=== PATIENT | male | born 1950 | race Caucasian/White ===

== ENCOUNTER → 2016-05-08 | Outpatient (REF) | payer OTHER ==
[~2016-05-08] MED LIST: ACTO30TA7 PO; ASPI1TAB PO; CINN500C9 PO; FURO20TA2 PO; HUMA75IN2 SC; HUMA75VL SC; LIPI10TA PO; LOSA100T37 PO; MULT1TAB11 PO; ZYLO300T4 PO
[2016-05-08 14:00] LABS: INR 1.15
== END ==
LOC: M LAB REF 13:23
PROVIDERS: ATTEND Internal Medicine Medical Oncology
DX: C18.1 Malignant neoplasm of appendix (principal); C78.6 Secondary malignant neoplasm of retroperitoneum and peritoneum

== ENCOUNTER → 2016-05-15 | Outpatient (CLI) | payer MEDICARE, OTHER ==
[~2016-05-15] MED LIST changes: +LIDOCAINE 2% MDV 20 ML VIAL As Ordered ONE; +LIDOCAINE W/EPINEPHRINE 1% 20ML VIAL As Ordered ONE; +MIDAZOLAM INJ 2 MG/2 ML VIAL (J2250) As Ordered ONE; +SODIUM BICARBONATE 8.4% INJ 50MEQ 50 ML VIAL As Ordered ONE; +ceFAZolin 1GM INJ (J0690) As Ordered ONE; +fentaNYL 100 MCG/2 ML INJECTION (J3010) As Ordered ONE
--- NOTE | 2016-05-15 17:08 | REPKIM ---
CLINICAL HISTORY: Appendiceal adeno ca, colonic mass with peritoneal carcinomatosis. The referring service has asked a chest [id number] placement for chemotherapy. PROCEDURE PERFORMED: Placement of totally implantable venous access device under combined sonographic and fluoroscopic guidance INTERVENTIONALIST: Philip Palencia MD CONSENT: The risks, benefits and alternatives to the procedure were explained to the patient and informed written consent was obtained. MEDICATIONS: Local Lidocaine, Ancef 1 gm IV, Versed IV and Fentanyl IV. SEDATION: Conscious sedation using Versed 1.5 mg IV and Fentanyl 75 mcg IV; starting time at 1023 and end at 1105. Independent trained observer was present during the entire duration of the conscious sedation for monitoring. EBL: less than 10 mL FLUORO TIME: 0.2 minutes DEVICE USED: Bard Port 8-Spanish, Single-Lumen Lot#[id number] PROCEDURE/FINDINGS: The patient was brought to the interventional radiology suite and was positioned supine on the table. Time out procedure was performed. Real time ultrasound was used and permanent image stored. The right IJ vein is patent and compressible. Using ultrasound guidance the internal jugular vein was accessed with a micropuncture needle, after infiltration of the skin and deep tissues with local anesthetic. A peel-away sheath was placed. The catheter tip was inserted via the sheath under controlled respiration. The sheath was removed, and the catheter was flushed with heparinized saline and clamped. Next attention was turned to creation of a subcutaneous pocket for the port along the upper chest. The overlying skin and deep tissues were infiltrated with local anesthetic. A transverse skin incision was made long enough to accommodate the reservoir, and using blunt dissection a subcutaneous pocket was created. A tunnel was created from the pocket to the access site. A clamp was advanced from the pocket incision to the venous access site and used to grasp the free end of the catheter and pull it through to the pocket incision. The catheter was trimmed, attached to the reservoir, and flushed with heparinized saline. The reservoir was inserted into the pocket and secured with 2-0 absorbable sutures. The deep tissue was closed with interrupted 2-0 Vicryl suture. The skin incision was closed with a running subcuticular suture of 4-0 Vicryl. The venotomy incision was closed with 4-0 Vicryl suture. Mastisol and Steri-Strips were applied. The port was then accessed and Heparin (100 units/mL concentration) locked in the port. A sterile dressing was then applied. Post procedure chest spot film radiograph showed the tip of the catheter is at the cavoatrial junction. The patient tolerated the procedure well with no immediate complications. This procedure was performed using ultrasound and fluoroscopy. Dr. Palencia was present. IMPRESSION: 1. The right IJ vein is patent and compressible. 2. Successful placement of right IJ chest port placement as discussed above. The chest [id number] is ready for use. cc: Netta Maher MD [facility]
== END | disposition home or self-care (01) ==
LOC: M IRPRO 09:17
PROVIDERS: ATTEND Internal Medicine Medical Oncology
DX: C18.1 Malignant neoplasm of appendix (principal); C78.6 Secondary malignant neoplasm of retroperitoneum and peritoneum
CPT/HCPCS: 36561; 76937; 77001; C1788; C1894; J0690; J2250; J3010

== ENCOUNTER 2016-05-20 13:21 | Outpatient (CLI) | payer OTHER ==
[~2016-05-20 13:21] MED LIST changes: -LIDOCAINE 2% MDV 20 ML VIAL As Ordered ONE; -LIDOCAINE W/EPINEPHRINE 1% 20ML VIAL As Ordered ONE; -MIDAZOLAM INJ 2 MG/2 ML VIAL (J2250) As Ordered ONE; -SODIUM BICARBONATE 8.4% INJ 50MEQ 50 ML VIAL As Ordered ONE; -ceFAZolin 1GM INJ (J0690) As Ordered ONE; -fentaNYL 100 MCG/2 ML INJECTION (J3010) As Ordered ONE
[2016-05-20] MEDS ORDERED: diphenhydrAMINE 25 MG CAP PO ONE (13:45)
[2016-05-20] MEDS ORDERED: ACETAMINOPHEN TAB 650MG DOSE (2X325MG) PO ONE (13:45)
== END 2016-05-20 18:45 | disposition home or self-care (01) ==
LOC: M INFU 13:21
PROVIDERS: ATTEND Internal Medicine Medical Oncology
DX: C18.1 Malignant neoplasm of appendix (principal); Z79.899 Other long term (current) drug therapy; Z79.82 Long term (current) use of aspirin; Z79.4 Long term (current) use of insulin
CPT/HCPCS: 36430; 86850; 86900; 86901; 86920; P9016

== ENCOUNTER → 2016-06-04 | Outpatient (REF) | payer OTHER | LOC: M LAB REF 12:34 | PROVIDERS: ATTEND Internal Medicine Medical Oncology | DX: C18.1 Malignant neoplasm of appendix (principal) | CPT/HCPCS: 82378; 86850; 86900; 86901; 86920; P9016 ==

== ENCOUNTER 2016-06-05 10:54 | Outpatient (CLI) | payer OTHER ==
[2016-06-05] MEDS ORDERED: diphenhydrAMINE 50 MG CAP PO ONE (11:30)
[2016-06-05] MEDS ORDERED: ACETAMINOPHEN TAB 650MG DOSE (2X325MG) PO ONE (11:45)
== END 2016-06-05 17:56 | disposition home or self-care (01) ==
LOC: M OPCLI5PR 10:54 → M MS5PR 10:56 → M OPCLI5PR 17:56
PROVIDERS: ATTEND Internal Medicine Medical Oncology
DX: C18.1 Malignant neoplasm of appendix (principal); D64.9 Anemia, unspecified

== ENCOUNTER 2016-06-30 05:10 | Emergency (ER) | payer OTHER ==
[2016-06-30] MEDS ORDERED: EPINEPHrine 1MG/10ML SYRINGE 1.5IN ONE (06:38)
== END 2016-06-30 08:17 | disposition expired ==
LOC: EDSEX 05:10 → EDBD 05:10 → M ED 06:37
DX: I46.9 Cardiac arrest, cause unspecified (principal)